=== PATIENT | female | born 2000 | race Caucasian/White ===

== ENCOUNTER 2022-11-24 15:19 | Emergency (ER) | payer MEDICAID ==
[2022-11-24] MEDS ORDERED: LORazepam 1 MG Tab PO ONE (15:48)
[2022-11-24] MEDS ORDERED: Acetaminophen 500 MG Tab PO ONE (16:20)
[2022-11-24 17:33] LABS: BASE EXCESS VENOUS 1.4 mm/L; BASOPHILS ABSOLUTE AUTO 0.04 K/uL (0.00-0.10); BASOPHILS PERCENT AUTO 0.5 % (0.1-1.3); BICARBONATE,VENOUS 26.1 mmol/L; CARBOXYHEMOGLOBIN 1.6 % (0.0-1.6); EOSINOPHILS ABSOLUTE AUTO 0.11 K/uL (0.00-0.40); EOSINOPHILS PERCENT AUTO 1.5 % (0.0-5.4); HEMATOCRIT 41.2 % (34.3-46.0); HEMOGLOBIN 13.9 g/dL (11.2-15.5); IMMATURE GRAN ABSOLUTE AUTO 0.02 K/uL (0.00-0.23); IMMATURE GRAN PERCENT AUTO 0.3 % (0.0-0.7); LYMPHOCYTES PERCENT AUTO 25.4 % (11.4-47.7); MEAN CORPUSCULAR HEMOGLOBIN 29.6 pg (31.6-35.5); MEAN CORPUSCULAR HGB CONC 33.7 g/dL (31.6-35.5); MEAN CORPUSCULAR VOLUME 87.8 fL (81.4-99.0); METHEMOGLOBIN 0.9 %; MONOCYTES ABSOLUTE AUTO 0.71 K/uL (0.20-0.90); MONOCYTES PERCENT AUTO 9.5 % (3.3-12.6); NEUTROPHILS ABSOLUTE AUTO 4.71 K/uL (1.0-7.6); NEUTROPHILS PERCENT AUTO 62.8 % (40.0-78.1); O2 SATURATION VENOUS 48.2; PCO2 VENOUS 43.7 mm/Hg; PH,VENOUS 7.394 (7.350-7.450); PLATELET COUNT,PLT 333 K/uL (130-375); RED BLOOD CELL COUNT 4.69 M/uL (3.77-5.24); TOTAL HEMOGLOBIN 14.6 g/dL (12.0-16.0); WHITE BLOOD CELL COUNT,WBC 7.5 K/uL (3.2-11.0)
[2022-11-24 17:34] LABS: PO2 VENOUS 28.3 mm/Hg
[2022-11-24 18:04] LABS: A/G RATIO 1.1 (1.2-2.2); ALANINE AMINOTRANSFERASE,ALT 34 U/L (12-78); ALBUMIN 3.5 g/dL (3.4-5.0); ALKALINE PHOSPHATASE 68 U/L (46-116); ASPARTATE AMNIOTRANSFERASE,AST 22 U/L (15-37); BILIRUBIN TOTAL 0.3 mg/dL (0.2-1.0); BLOOD UREA NITROGEN,BUN 9 mg/dL (7-18); CALCIUM 9.1 mg/dL (8.5-10.1); CARBON DIOXIDE,CO2 27 mmol/L (21-32); CHLORIDE,CL 101 mmol/L (100-108); CREATININE 0.9 mg/dL (0.6-1.0); EST CRCL DRUG DOSING (CG) 76.89 mL/min; ESTIMATED GFR 92 mL/min (>60); GLUCOSE RANDOM 85 mg/dL (74-106); POTASSIUM,K 4.1 mmol/L (3.6-5.2); PROTEIN TOTAL,TP 6.8 g/dL (6.4-8.2); SODIUM,NA 136 mmol/L (140-148); TSH ULTRASENSITIVE 1.413 uIU/mL (0.358-3.740)
[2022-11-24 18:06] LABS: ANION GAP 12.1 mmol/L (5.0-14.0)
== END 2022-11-24 19:26 | disposition home or self-care (01) ==
LOC: JP.ED 15:19
DX: R41.0 Disorientation, unspecified (principal); F31.70 Bipolar disorder, currently in remission, most recent episode unspecified; F43.10 Post-traumatic stress disorder, unspecified; Z79.899 Other long term (current) drug therapy; Z86.73 Personal history of transient ischemic attack (TIA), and cerebral infarction without residual deficits
CPT/HCPCS: 36415; 80053; 80307; 82803; 84443; 85025; 99284; A9270